=== PATIENT | female | born 1995 | race Caucasian/White ===

== ENCOUNTER 2017-01-28 16:15 | Emergency (ER) | payer BC, OTHER ==
[2017-01-28 16:24] VITALS: BP 117/73; PULSE 70; O2SAT 98
--- NOTE | 2017-01-28 16:45 | ERPHSYRPT ---
- History of Present Illness Time Seen by Provider: 01/28/17 16:27 Source: patient, family () Patient Subjective Stated Complaint: Pt states "I have had a UTI for about 3 weeks and it is not getting any better and I am having a brown discharge." Triage Nursing Assessment: Pt alert and oriented X 3, skin pwd. pt ambulates without difficulty, able to speak in full sentences. Physician History: CC: uti Hx: 21 y/o patient of Dr Swenson with 3 weeks uti symptoms with dysuria, urinary urgency and frequency. She has self treated with azo dye with no improvement. Some brown disharge. LMP 1 month ago. No fever or chills. No abd pain. Some low back pain. Allergies/Adverse Reactions: No Known Drug Allergies Allergy (Verified 01/28/17 16:25) Hx Tetanus, Diphtheria Vaccination/Date Given: No Hx Influenza Vaccination/Date Given: No Hx Pneumococcal Vaccination/Date Given: No - Review of Systems Constitutional: No Fever, No Chills Abdominal/Gastrointestinal: No Abdominal Pain, No Nausea, No Vomiting Genitourinary Symptoms: Dysuria, Hesitancy, Urgency, No Musculoskeletal: Back Pain (low back) All Other Systems: Reviewed and Negative - Past Medical History Pertinent Past Medical History: No Neurological History: No Pertinent History ENT History: No Pertinent History Respiratory History: No Pertinent History Endocrine Medical History: No Pertinent History Musculoskeletal History: No Pertinent History GI Medical History: No Pertinent History History: No Pertinent History Psycho-Social History: No Pertinent History Female Reproductive Disorders: No Pertinent History - Past Surgical History Past Surgical History: No Neuro Surgical History: No Pertinent History Respiratory: No Pertinent History Gastrointestinal: No Pertinent History Genitourinary: No Pertinent History Musculoskeletal: No Pertinent History Female Surgical History: Other - Social History Smoking Status: Current every day smoker How long have you smoked: years Exposure to second hand smoke: Yes Drug Use: none Patient Lives Alone: No - Female History Hx Last Menstrual Period: 12/24/2016 Hx Now: Yes - Nursing Vital Signs Nursing Vital Signs: Initial Vital Signs Temperature 98.2 F 01/28/17 16:19 Pulse Rate 70 01/28/17 16:19 Respiratory Rate 16 01/28/17 16:19 Blood Pressure 117/73 01/28/17 16:19 O2 Sat by Pulse Oximetry 98 01/28/17 16:19 Pain Scale Pain Intensity 4 - Physical Exam General Appearance: alert Eye Exam: PERRL/EOMI Ears, Nose, Throat Exam: normal ENT inspection, moist mucous membranes Neck Exam: normal inspection, non-tender, supple Respiratory Exam: normal breath sounds, lungs clear Cardiovascular Exam: regular rate/rhythm Gastrointestinal/Abdomen Exam: soft, No tenderness, No distention Neurologic Exam: alert, oriented x 3, cooperative, sensation nml, No motor deficits Skin Exam: warm, dry SpO2 Interpretation: normal SpO2: 98 Oxygen Delivery: Room Air - Course Nursing assessment & vital signs reviewed: Yes Ordered Tests: Active Orders 24 hr Category Date Time Status CULTURE,URINE Stat Lab 01/28/17 16:40 Received HCG,QUALITATIVE URINE Stat Lab 01/28/17 16:40 Completed UA W/ MICROSCOPIC Stat Lab 01/28/17 16:40 Completed Lab/Rad Data: Laboratory Results 01/28/17 01/28/17 Range/Units 16:40 16:40 Ur Collection Type VOID Urine Color YELLOW (YELLOW) Urine Appearance CLOUDY (CLEAR) Urine pH 7.0 (5-6) Ur Specific [place] 1.010 (1.005-1.025) Urine Protein TRACE (Negative) Urine Ketones NEGATIVE (NEGATIVE) Urine Blood 250 (0-5) Bernard/ul Urine Nitrite NEGATIVE (NEGATIVE) Urine Bilirubin SMALL (NEGATIVE) Urine Urobilinogen 4 (0-1) mg/dL Ur Leukocyte Esterase 2+ (NEGATIVE) Urine Microscopic RBC 10-15 (0-2) /HPF Urine Microscopic WBC >100 (0-5) /HPF Ur Epithelial Cells MODERATE (FEW) /HPF Amorphous Crystals MODERATE (NEGATIVE) /HPF Urine Bacteria MODERATE (NEGATIVE) /HPF Urine Glucose NEGATIVE (NEGATIVE) mg/dL Urine HCG, Qual NEGATIVE (Negative) Specimen Received 01/28/17 1640 - Progress Progress Note: 01/28/17 17:02 UTI symptoms with positive UA. She has taken bactrim before and will take it. Cx sent. Counseled pt/family regarding: lab results, diagnosis, need for follow-up - Departure Time of Disposition: 17:03 Departure Disposition: Home Clinical Impression: UTI (urinary tract infection) Qualifiers: Urinary tract infection type: acute cystitis Hematuria presence: without hematuria Qualified Code(s): N30.00 - Acute cystitis without hematuria Condition: Stable Critical Care Time: No Referrals: SYLVIA SWENSON MD [Primary Care Provider] - Instructions: Urinary Tract Infection (UTI) Additional Instructions: URINARY TRACT INFECTION 1. You will need to drink plenty of fluids in order to keep your urinary system flushed. These fluids should mainly consist of water and juices. 2. Take medications as directed. You need to completely finish any antiobiotic prescription given. 3. Try to avoid coffee, tea, alcohol, and seasoned foods as they may cause bladder irritation. 4. If signs and symptoms persist after 3-4 days, you will need to follow up with your family physician. 5. Female Patients: A. Avoid intercourse for 3-4 days. B. Empty bladder before and after intercourse to reduce risk of re- infection. C. After emptying bladder, wipe from front to back to reduce the risk of re- infection. Rx bactrim Follow up with Dr Swenson Prescriptions: Smz/Tmp Ds Tablet [Bactrim Ds Tablet] 1 udtab PO BID #14 tablet
[2017-01-28 16:52] LABS: Collection Type VOID; Leukocyte Esterase 2+ (NEGATIVE)
[2017-01-28 16:53] LABS: ADD URINE CULTURE? YES (NO); Bacteria MODERATE /HPF (NEGATIVE); Bilirubin SMALL (NEGATIVE); Blood 250 Ery/ul (0-5); COMPLETE URINE MICROSCOPIC? YES; Epithelial Cells MODERATE /HPF (FEW); Glucose NEGATIVE (NEGATIVE); WBC >100 /HPF (0-5)
== END 2017-01-28 17:37 | disposition home or self-care (01) ==
LOC: ED 16:15
DX: N30.00 Acute cystitis without hematuria (principal); N39.0 Urinary tract infection, site not specified
CPT/HCPCS: 81000; 84703; 87086; 99282; 99283

== ENCOUNTER 2023-04-11 01:53 | Emergency (ER) | payer OTHER ==
[2023-04-11 01:59] VITALS: TEMP 98; O2SAT 100
--- NOTE | 2023-04-11 02:09 | ERPHSYRPT ---
- History of Present Illness Time Seen by Provider: 04/11/23 02:03 Historian: patient Exam Limitations: no limitations Physician History: pt is 22 year old with hx panic attacks and felt rapid HR and though one was coming on but found her pulse counting device in the 200s and this resolved in about 10 minutes but then has had CP since and came for eval. No Hx trauma. No prior Hx cardiac condition, but had hptn with pregnancies which later resolved. + Fam Hx and + smoking ( vaping) Hx. Denies drug use. No prior PE or DVT. Discussed risks / Benefits with pt for testing including EKG, IV, Trop, D DImer, lactate, Jennifer, Lipase, HCG, BNP, CBC, CMP, T4, TSH, UA, CXR ) , and Tx ativan, ASA, NTG, and she wishes to proceed. THese are ordered. Results discussed. Heart Score: 3 0 for age 2 for risk factors hptn, +fam hx, smoking. 1 for mod suspect CP. 0 for EKG. Timing/Duration: today Activities at Onset: none, rest Quality: sharpness Location: substernal, central Chest Pain Radiation: no radiation Severity of Pain-Max: moderate Severity of Pain-Current: moderate Modifying Factors: Improves With: nothing Associated Symptoms: headache Prior Chest Pain/Cardiac Workup: non-cardiac Nitro Today/Relief: 0.4 mg x 1, provided by ED, mild relief Aspirin Treatment Today: 81 mg x 4, provided by ED Allergies/Adverse Reactions: No Known Drug Allergies Allergy (Verified 04/11/23 02:18) Home Medications: No Reportable Medications [No Reported Medications] 04/11/23 [History] Hx Tetanus, Diphtheria Vaccination/Date Given: No Hx Influenza Vaccination/Date Given: No Hx Pneumococcal Vaccination/Date Given: No - Review of Systems Constitutional: No Fever, No Chills Eyes: No Symptoms Ears, Nose, & Throat: No Symptoms Respiratory: No Cough, No Dyspnea Cardiac: Chest Pain, Palpitations, No Edema, No Syncope Abdominal/Gastrointestinal: No Abdominal Pain, No Nausea, No Vomiting, No Diarrhea Genitourinary Symptoms: No Dysuria Musculoskeletal: No Back Pain, No Neck Pain Skin: No Rash Neurological: No Dizziness, No Focal Weakness, No Sensory Changes Psychological: No Symptoms Endocrine: No Symptoms Hematologic/Lymphatic: No Symptoms Immunological/Allergic: No Symptoms All Other Systems: Reviewed and Negative - Past Medical History Pertinent Past Medical History: No Neurological History: No Pertinent History ENT History: No Pertinent History Respiratory History: No Pertinent History Endocrine Medical History: No Pertinent History Musculoskeletal History: No Pertinent History GI Medical History: No Pertinent History History: No Pertinent History Psycho-Social History: No Pertinent History Female Reproductive Disorders: No Pertinent History - Past Surgical History Past Surgical History: No Neuro Surgical History: No Pertinent History Respiratory: No Pertinent History Gastrointestinal: No Pertinent History Genitourinary: No Pertinent History Musculoskeletal: No Pertinent History Female Surgical History: Other - Social History Smoking Status: Current every day smoker How long have you smoked: years Exposure to second hand smoke: Yes Drug Use: none Patient Lives Alone: No - Nursing Vital Signs Nursing Vital Signs: Initial Vital Signs Temperature 98.0 F 04/11/23 01:55 Pulse Rate 106 H 04/11/23 01:55 Respiratory Rate 18 04/11/23 01:55 Blood Pressure 152/86 04/11/23 01:55 O2 Sat by Pulse Oximetry 100 04/11/23 01:55 Pain Scale Pain Intensity 4 - Physical Exam General Appearance: no apparent distress, alert Eye Exam: PERRL/EOMI, eyes nml inspection Ears, Nose, Throat Exam: normal ENT inspection, moist mucous membranes Neck Exam: normal inspection, non-tender, supple, full range of motion Respiratory Exam: normal breath sounds, lungs clear, No respiratory distress Cardiovascular Exam: regular rate/rhythm, normal heart sounds Gastrointestinal/Abdomen Exam: soft, No tenderness, No mass Pelvic Exam: deferred Rectal Exam: deferred Back Exam: normal inspection, No CVA tenderness, No vertebral tenderness Extremity Exam: normal inspection, normal range of motion Neurologic Exam: alert, oriented x 3, cooperative, normal mood/affect, sensation nml, No motor deficits Skin Exam: normal color, warm, dry SpO2 Interpretation: normal SpO2: 100 O2 Delivery: Room Air - Course Nursing assessment & vital signs reviewed: Yes EKG Interpreted by Me: Sinus Rhythm, NORMAL AXIS, NORMAL INTERVALS, NORMAL QRS, NORMAL ST-T - Radiology Exams Chest X-ray Interpretation: Reviewed by me, No Pneumonia, No Pneumothorax, No Infiltrates, Other (mild granulomata) Ordered Tests: Active Orders 24 hr Category Date Time Status Press Setter STAT Care 04/11/23 02:16 Active EKG-ER Only STAT Care 04/11/23 02:14 Active IV Insertion STAT Care 04/11/23 02:14 Active Pulse Oximetry (ED) STAT Care 04/11/23 02:14 Active CHEST 1 VIEW (PORTABLE) Stat Exams 04/11/23 02:15 Taken AMYLASE Stat Lab 04/11/23 02:20 Completed CBC W DIFF Stat Lab 04/11/23 02:20 Completed CMP Stat Lab 04/11/23 02:20 Completed D-DIMER QUANTITATIVE Stat Lab 04/11/23 02:20 Completed HCG QUALITATIVE, SERUM Stat Lab 04/11/23 02:20 Completed LIPASE Stat Lab 04/11/23 02:20 Completed Lactic Acid Stat Lab 04/11/23 02:19 Completed NT PRO BNPII Stat Lab 04/11/23 02:20 Completed T4 (Thyroxine) Stat Lab 04/11/23 02:20 Completed TROPONIN Q4H Lab 04/11/23 02:20 Completed TROPONIN Q4H Lab 04/11/23 06:15 Ordered TROPONIN Q4H Lab 04/11/23 10:15 Ordered TSH [TSH, 3RD Generation] Stat Lab 04/11/23 02:20 Completed UA W/RFX UR CULTURE Stat Lab 04/11/23 02:43 Completed Medication Summary Discontinued Medications Generic Name Dose Route Start Last Admin Trade Name Freq PRN Reason Stop Dose Admin Aspirin 324 mg 04/11/23 02:14 04/11/23 02:42 Aspirin 81 Mg Tab.Chew PO 04/11/23 02:15 324 mg STAT ONE Administration Aspirin Confirm 04/11/23 02:26 Aspirin 81 Mg Tab.Chew Administered 04/11/23 02:27 Dose 324 mg .ROUTE .STK-MED ONE Famotidine 20 mg 04/11/23 02:14 04/11/23 02:39 Famotidine 20 Mg/1 Vial IV 04/11/23 02:15 20 mg STAT ONE Administration Famotidine Confirm 04/11/23 02:28 Famotidine 20 Mg/1 Vial Administered 04/11/23 02:29 Dose 20 mg IV .STK-MED ONE Sodium Chloride 1,000 mls @ 999 mls/hr 04/11/23 02:14 04/11/23 03:42 Sodium Chloride 0.9% 1000 Ml IV 04/11/23 03:14 Infused .Q1H1M STA Infusion Sodium Chloride Confirm 04/11/23 02:27 Sodium Chloride 0.9% 1000 Ml Administered 04/11/23 02:28 Dose 1,000 mls @ ud .ROUTE .STK-MED ONE Lorazepam 1 mg 04/11/23 02:18 04/11/23 02:42 Lorazepam 1 Mg Tablet PO 04/11/23 02:19 1 mg STAT ONE Administration Lorazepam Confirm 04/11/23 02:27 Lorazepam 1 Mg Tablet Administered 04/11/23 02:28 Dose 1 mg .ROUTE .STK-MED ONE Nitroglycerin 0.4 mg 04/11/23 02:14 04/11/23 02:42 Nitroglycerin 0.4 Mg (Ed) 0.4 Mg Tab.Subl SL 04/11/23 02:15 0.4 mg STAT ONE Administration Nitroglycerin Confirm 04/11/23 02:27 Nitroglycerin 0.4 Mg (Ed) 0.4 Mg Tab.Subl Administered 04/11/23 02:28 Dose 0.4 mg SL .STK-MED ONE Pantoprazole Sodium 40 mg 04/11/23 02:14 04/11/23 02:39 Pantoprazole 40 Mg Vial IV 04/11/23 02:15 40 mg STAT ONE Administration Pantoprazole Sodium Confirm 04/11/23 02:27 Pantoprazole 40 Mg Vial Administered 04/11/23 02:28 Dose 40 mg IV .STK-MED ONE Lab/Rad Data: Laboratory Result Diagrams 04/11/23 02:20 04/11/23 02:20 Laboratory Results 04/11/23 04/11/23 04/11/23 Range/Units 02:43 02:20 02:20 WBC (4.0-10.5) x10^3/uL RBC (4.1-5.4) x10^6/uL Hgb (12.0-16.0) g/dL Hct (35-47) % MCV (78-100) fL MCH (26-32) pg MCHC (32-36) g/dL RDW (11.5-14.0) % Plt Count (150-450) x10^3/uL MPV (7.5-11.0) fL Gran % (36.0-66.0) % Immature Gran % (Auto) (0.00-0.4) % Nucleat RBC Rel Count (0.00-0.1) % Eos # (Auto) (0-0.5) x10^3/uL Immature Gran # (Auto) (0.00-0.03) x10^3u/L Absolute Lymphs (auto) (1.0-4.6) x10^3/uL Absolute Monos (auto) (0.0-1.3) x10^3/uL Absolute Nucleated RBC (0.00-0.01) x10^3u/L Lymphocytes % (24.0-44.0) % Monocytes % (0.0-12.0) % Eosinophils % (0.00-5.0) % Basophils % (0.0-0.4) % Absolute Granulocytes (1.4-6.9) x10^3/uL Basophils # (0-0.4) x10^3/uL D-Dimer (0.0-0.50) mg/L Sodium (137-145) mmol/L Potassium (3.5-5.1) mmol/L Chloride (98-107) mmol/L Carbon Dioxide (22-30) mmol/L Anion Gap (5-15) MEQ/L BUN (7-17) mg/dL Creatinine (0.52-1.04) mg/dL Estimated GFR ML/MIN Glucose (74-106) mg/dL Lactic Acid (0.4-2.0) Calcium (8.4-10.2) mg/dL Total Bilirubin (0.2-1.3) mg/dL AST (14-36) U/L ALT (0-35) U/L Alkaline Phosphatase (38-126) U/L Troponin I (0.000-0.034) ng/mL NT-Pro-B Natriuret Pep (<300) pg/mL Serum Total Protein (6.3-8.2) g/dL Albumin (3.5-5.0) g/dL Amylase (30-110) U/L Lipase (23-300) U/L Thyroxine (T4) 7.05 (5.53-10.96) ug/dL TSH 3rd Generation 0.879 (0.47-4.68) mIU/L Serum HCG, Qual NEGATIVE (NEGATIVE) Urine Color Yellow (Yellow) Urine Appearance Clear (Clear) Urine pH 7.5 (4.6-8.0) Ur Specific [place] 1.010 (1.005-1.030) Urine Protein Negative (Negative) Urine Glucose (UA) Negative (Negative) mg/dL Urine Ketones Negative (Negative) Urine Blood Negative (Negative) Urine Nitrite Negative (Negative) Urine Bilirubin Negative (Negative) Urine Urobilinogen 1.0 A (0.2) mg/dL Ur Leukocyte Esterase Negative (Negative) U Hyaline Cast (Auto) NONE SEEN (0-2) /LPF Urine Microscopic RBC 0-2 (0-5) /HPF Urine Microscopic WBC 0-2 (0-5) /HPF Ur Epithelial Cells None Seen (None Seen) /HPF Urine Bacteria None Seen (None Seen) /HPF Urine Culture Reflexed NO (NO) 04/11/23 04/11/23 04/11/23 Range/Units 02:20 02:20 02:20 WBC (4.0-10.5) x10^3/uL RBC (4.1-5.4) x10^6/uL Hgb (12.0-16.0) g/dL Hct (35-47) % MCV (78-100) fL MCH (26-32) pg MCHC (32-36) g/dL RDW (11.5-14.0) % Plt Count (150-450) x10^3/uL MPV (7.5-11.0) fL Gran % (36.0-66.0) % Immature Gran % (Auto) (0.00-0.4) % Nucleat RBC Rel Count (0.00-0.1) % Eos # (Auto) (0-0.5) x10^3/uL Immature Gran # (Auto) (0.00-0.03) x10^3u/L Absolute Lymphs (auto) (1.0-4.6) x10^3/uL Absolute Monos (auto) (0.0-1.3) x10^3/uL Absolute Nucleated RBC (0.00-0.01) x10^3u/L Lymphocytes % (24.0-44.0) % Monocytes % (0.0-12.0) % Eosinophils % (0.00-5.0) % Basophils % (0.0-0.4) % Absolute Granulocytes (1.4-6.9) x10^3/uL Basophils # (0-0.4) x10^3/uL D-Dimer 0.30 (0.0-0.50) mg/L Sodium 137 (137-145) mmol/L Potassium 3.7 (3.5-5.1) mmol/L Chloride 104 (98-107) mmol/L Carbon Dioxide 22 (22-30) mmol/L Anion Gap 16.0 H (5-15) MEQ/L BUN 7 (7-17) mg/dL Creatinine 0.61 (0.52-1.04) mg/dL Estimated GFR 125.6 ML/MIN Glucose 111 H (74-106) mg/dL Lactic Acid (0.4-2.0) Calcium 9.9 (8.4-10.2) mg/dL Total Bilirubin 0.60 (0.2-1.3) mg/dL AST 27 (14-36) U/L ALT 28 (0-35) U/L Alkaline Phosphatase 62 (38-126) U/L Troponin I < 0.012 (0.000-0.034) ng/mL NT-Pro-B Natriuret Pep < 20.0 (<300) pg/mL Serum Total Protein 8.3 H (6.3-8.2) g/dL Albumin 4.9 (3.5-5.0) g/dL Amylase 84 (30-110) U/L Lipase 90 (23-300) U/L Thyroxine (T4) (5.53-10.96) ug/dL TSH 3rd Generation (0.47-4.68) mIU/L Serum HCG, Qual (NEGATIVE) Urine Color (Yellow) Urine Appearance (Clear) Urine pH (4.6-8.0) Ur Specific [place] (1.005-1.030) Urine Protein (Negative) Urine Glucose (UA) (Negative) mg/dL Urine Ketones (Negative) Urine Blood (Negative) Urine Nitrite (Negative) Urine Bilirubin (Negative) Urine Urobilinogen (0.2) mg/dL Ur Leukocyte Esterase (Negative) U Hyaline Cast (Auto) (0-2) /LPF Urine Microscopic RBC (0-5) /HPF Urine Microscopic WBC (0-5) /HPF Ur Epithelial Cells (None Seen) /HPF Urine Bacteria (None Seen) /HPF Urine Culture Reflexed (NO) 11/26/23 11/26/23 Range/Units 02:20 02:19 WBC 11.7 H (4.0-10.5) x10^3/uL RBC 5.00 (4.1-5.4) x10^6/uL Hgb 15.1 (12.0-16.0) g/dL Hct 45.5 (35-47) % MCV 91.0 (78-100) fL MCH 30.2 (26-32) pg MCHC 33.2 (32-36) g/dL RDW 12.3 (11.5-14.0) % Plt Count 349 (150-450) x10^3/uL MPV 8.9 (7.5-11.0) fL Gran % 68.1 H (36.0-66.0) % Immature Gran % (Auto) 0.2 (0.00-0.4) % Nucleat RBC Rel Count 0.0 (0.00-0.1) % Eos # (Auto) 0.52 H (0-0.5) x10^3/uL Immature Gran # (Auto) 0.02 (0.00-0.03) x10^3u/L Absolute Lymphs (auto) 2.72 (1.0-4.6) x10^3/uL Absolute Monos (auto) 0.45 (0.0-1.3) x10^3/uL Absolute Nucleated RBC 0.00 (0.00-0.01) x10^3u/L Lymphocytes % 23.2 L (24.0-44.0) % Monocytes % 3.8 (0.0-12.0) % Eosinophils % 4.4 (0.00-5.0) % Basophils % 0.3 (0.0-0.4) % Absolute Granulocytes 7.97 H (1.4-6.9) x10^3/uL Basophils # 0.03 (0-0.4) x10^3/uL D-Dimer (0.0-0.50) mg/L Sodium (137-145) mmol/L Potassium (3.5-5.1) mmol/L Chloride (98-107) mmol/L Carbon Dioxide (22-30) mmol/L Anion Gap (5-15) MEQ/L BUN (7-17) mg/dL Creatinine (0.52-1.04) mg/dL Estimated GFR ML/MIN Glucose (74-106) mg/dL Lactic Acid 2.0 (0.4-2.0) Calcium (8.4-10.2) mg/dL Total Bilirubin (0.2-1.3) mg/dL AST (14-36) U/L ALT (0-35) U/L Alkaline Phosphatase (38-126) U/L Troponin I (0.000-0.034) ng/mL NT-Pro-B Natriuret Pep (<300) pg/mL Serum Total Protein (6.3-8.2) g/dL Albumin (3.5-5.0) g/dL Amylase (30-110) U/L Lipase (23-300) U/L Thyroxine (T4) (5.53-10.96) ug/dL TSH 3rd Generation (0.47-4.68) mIU/L Serum HCG, Qual (NEGATIVE) Urine Color (Yellow) Urine Appearance (Clear) Urine pH (4.6-8.0) Ur Specific [place] (1.005-1.030) Urine Protein (Negative) Urine Glucose (UA) (Negative) mg/dL Urine Ketones (Negative) Urine Blood (Negative) Urine Nitrite (Negative) Urine Bilirubin (Negative) Urine Urobilinogen (0.2) mg/dL Ur Leukocyte Esterase (Negative) U Hyaline Cast (Auto) (0-2) /LPF Urine Microscopic RBC (0-5) /HPF Urine Microscopic WBC (0-5) /HPF Ur Epithelial Cells (None Seen) /HPF Urine Bacteria (None Seen) /HPF Urine Culture Reflexed (NO) - Progress Progress: improved, re-examined Air Movement: good Progress Note: 04/11/23 03:59 Pt symptoms have greatly improved/nearly resolved now. discussed results and the limitations of testing performed with pt and that although testing is basically negative, and the estimated cardiac score is low risk ( 1-2%), there still can be undetected cardiac or vascular or other con ditions evolving of potentially serious nature, especially since we have not yet determined a precise cause for the symptoms. SHe voices understanding and is comfortable with outpt f/u and w/u with her drAfsaneh rather than further w/u and observation in hospital at this time, and has the capacity to make this choice. 04/11/23 04:04 HR now in 70s and BP in 130s. Blood Culture(s) Obtained: No Antibiotics given: No Counseled pt/family regarding: lab results, diagnosis, need for follow-up, rad results, smoking cessation Medical Desision Making - Discussion of managment Reviewed:: Test results, Need for additional workup - Diagnostic Testing Diagnostic test were ordered, analyzed, and reviewed by me: Yes Radiological Interpretation: Interpreted by me, Reviewed by me - Risk of complications The pt has a high risk of morbidity or mortality based on: Decision regarding hospitilization or escalation of hosp level of care - Departure Departure Disposition: Home Clinical Impression: chest pain. Paroxysmal tachycardia episo Condition: Good Critical Care Time: No Referrals: SYLVIA SWENSON MD [ACTIVE STAFF] - Follow up/PCP as directed Instructions: Chest Pain (DC), Paroxysmal Supraventricular Tachycardia (DC), Tachycardia, Vaping, Quitting Smoking ED Additional Instructions: We have not yet determined a precise cause for your episode of fast heart rate and chest pain, and although the heart tests were negative, there can still be undetected cardiac ro vascular conditions evolving so further workup with your Drs is advised. Your Dr. may consider and Echocardiology study or an electrical mapping test. Meanwhile avoid heavy exercise or exertion. Return meantime if further symptoms or concerns. Avoid any caffeine or stimulant drinks or meds. Since there is also a possibility of stomach irritation, an over the counter anti-acid med such as pepcid may help with some of the symptoms that are like heartburn.
[2023-04-11] MEDS ORDERED: PROTONIX 40 MG IV IV ONE ×2 (02:14→02:27)
[2023-04-11] MEDS ORDERED: Pepcid 20 MG VIAL IV ONE ×2 (02:14→02:28)
[2023-04-11] MEDS ORDERED: Nitrostat 0.4 MG (ED) SL ONE ×2 (02:14→02:27)
[2023-04-11] MEDS ORDERED: Sodium Chloride 0.9% 1000 ML 1,000 ML IV STA (02:14)
[2023-04-11] MEDS ORDERED: BABY ASPIRIN 81 MG CHEW PO ONE (02:14)
[2023-04-11] MEDS ORDERED: Ativan 1 MG PO ONE (02:18)
[2023-04-11 02:24] LABS: Absolute Neutrophil Ct (ANC) 7.97 x10^3/uL (1.4-6.9); BASOPHIL % 0.3 % (0.0-0.4); Basophil (Absolute #) 0.03 x10^3/uL (0-0.4); Eosinophil % 4.4 % (0.00-5.0); Eosinophil (Absolute #) 0.52 x10^3/uL (0-0.5); Hematocrit 45.5 % (35-47); Hemoglobin 15.1 g/dL (12.0-16.0); IMMATURE GRAN # 0.02 x10^3u/L (0.00-0.03); IMMATURE GRAN % 0.2 % (0.00-0.4); Lymphocyte (Absolute #) 2.72 x10^3/uL (1.0-4.6); Lymphocytes % 23.2 % (24.0-44.0); Mean Corpuscular Hemoglobin 30.2 pg (26-32); Mean Corpuscular Hgb Concent. 33.2 g/dL (32-36); Mean Platelet Volume 8.9 fL (7.5-11.0); Monocyte (Absolute #) 0.45 x10^3/uL (0.0-1.3); Monocytes % 3.8 % (0.0-12.0); Neutrophil % 68.1 % (36.0-66.0); Platelet Count 349 x10^3/uL (150-450); Red Cell Distribution Width 12.3 % (11.5-14.0); White Blood Count 11.7 x10^3/uL (4.0-10.5)
[2023-04-11] MEDS ORDERED: BABY ASPIRIN 81 MG CHEW ONE (02:26)
[2023-04-11] MEDS ORDERED: Ativan 1 MG ONE (02:27)
[2023-04-11] MEDS ORDERED: Sodium Chloride 0.9% 1000 ML 1,000 ML ONE (02:27)
[2023-04-11 02:55] LABS: ALBUMIN 4.9 g/dL (3.5-5.0); BILIRUBIN,TOTAL 0.6 mg/dL (0.2-1.3); Calcium 9.9 mg/dL (8.4-10.2); Creatinine 1 0.61 mg/dL (0.52-1.04); EST GLOMERULAR FILTRATION RATE 125.6 ML/MIN; Potassium 3.7 mmol/L (3.5-5.1); Total Protein 8.3 g/dL (6.3-8.2)
[2023-04-11 03:08] LABS: NT PRO BNPII < 20.0 pg/mL (<300); TROPONIN < 0.012 ng/mL (0.000-0.034)
[2023-04-11 03:26] LABS: T4 (Thyroxine) 7.05 ug/dL (5.53-10.96); TSH, 3RD Generation 0.879 mIU/L (0.47-4.68)
[2023-04-11 03:27] LABS: Appearance Clear (Clear); Bacteria None Seen /HPF (None Seen); Bilirubin Negative (Negative); Blood Negative (Negative); Epithelial Cells None Seen /HPF (None Seen); Glucose, Urine Negative (Negative); Hyaline Casts NONE SEEN /LPF (0-2); Ketones Negative (Negative); Leukocyte Esterase Negative (Negative); Nitrite Negative (Negative); Ph 7.5 (4.6-8.0); Protein,Urine Dip Negative (Negative); RBC 0-2 /HPF (0-5); WBC 0-2 /HPF (0-5)
[2023-04-11 03:29] LABS: ADD URINE CULTURE? NO (NO)
[2023-04-11 03:34] LABS: HCG SERUM TEST NEGATIVE (NEGATIVE)
[2023-04-11 04:11] VITALS: BP 124/72; PULSE 73; RESP 17
--- NOTE | 2023-04-11 08:34 | XRAY ---
Indication: Chest pain. Comparison: None Portable chest demonstrates normal heart, lungs, and bony thorax.
== END 2023-04-11 04:27 | disposition home or self-care (01) ==
LOC: ED 01:53
DX: R07.9 Chest pain, unspecified (principal); I47.9 Paroxysmal tachycardia, unspecified; Z72.0 Tobacco use
CPT/HCPCS: 36000; 36415; 71045; 80053; 81001; 82150; 83605; 83690; 83880; 84436; 84443; 84484; 84703; 85025; 85379; 93005; 93041; 94760; 96374; 96375; 99284; A9270-GY